=== PATIENT | female | born 1960 | race Caucasian/White ===

== ENCOUNTER 2019-02-20 09:43 | Emergency (ER) | payer OTHER ==
[~2019-02-20] VITALS: Ht 160 cm; Wt 90.9 kg
[~2019-02-20 09:43] MED LIST: CETI1TAB PO; FAMO20TA41 PO
[2019-02-20 11:00] VITALS: BP 113/68
== END 2019-02-20 11:28 | disposition home or self-care (01) ==
LOC: ER 09:43
DX: M25.562 Pain in left knee (principal); K21.9 Gastro-esophageal reflux disease without esophagitis; Z79.899 Other long term (current) drug therapy; X58.XXXA Exposure to other specified factors, initial encounter; Y93.01 Activity, walking, marching and hiking; Y92.89 Other specified places as the place of occurrence of the external cause; Y99.8 Other external cause status
CPT/HCPCS: 99281